=== PATIENT | female | born 1980 | race Caucasian/White ===

== ENCOUNTER 2016-06-07 08:24 | Emergency (ER) | payer OTHER ==
[~2016-06-07] VITALS: Ht 162.6 cm; Wt 69.3 kg
[2016-06-07] MEDS ORDERED: ZOLOFT100 MG PO (09:07)
[2016-06-07 09:10] LABS: HEMATOCRIT 42.5 % (36.0-46.0); MCHC 34.1 G/DL (30.0-36.0); MCV 87.8 FL (83-99); MEAN PLAT.VOLUME 9.2 uM^3 (9.5-12.4); PLATELET COUNT 270 K/uL (156-360); RBC DIS.WIDTH-CV 12.2 % (11.8-14.6); RED BLOOD COUNT 4.84 M/uL (3.80-5.20); WHITE BLOOD COUNT 4.8 K/uL (4.1-10.2)
[2016-06-07 09:16] LABS: CHLORIDE 106 mEq/L (99-109); POTASSIUM 3.8 mEq/L (3.7-5.4); SODIUM 139 mEq/L (136-147)
[2016-06-07 09:18] LABS: GLUCOSE 81 mg/dL (70-99)
[2016-06-07 09:20] LABS: ANION GAP 11 MEQ/L (2-14)
[2016-06-07 09:23] LABS: GFR ESTIMATE (CALCULATED) > 59 mL/min/; UREA NITROGEN (BUN) 15 mg/dL (9-23)
[2016-06-07 09:30] LABS: QUANTITATIVE HCG < 4.0 MIU/ML
[2016-06-07 10:25] LABS: ADD MIUA? YES; BILIRUBIN NEGATIVE; BLOOD NEGATIVE; COLOR YELLOW ((YELLOW)); GLUCOSE (STRIP) NEGATIVE; KETONES NEGATIVE; LEUKOCYTES SMALL; NITRITE NEGATIVE; PROTEIN (STRIP) NEGATIVE; SPECIFIC GRAVITY 1.013 (1.000-1.030); UROBILINOGEN 0.2 MG/DL (0.2-1.0)
[2016-06-07] MEDS ORDERED: KEPPRA500 MG PO (10:25)
[2016-06-07 10:28] LABS: BACTERIA RARE /HPF; EPITHELIAL CELLS 1+ /HPF; HYALINE CASTS 0-5 /LPF; MUCUS 1+ /LPF; WHITE BLOOD CELLS 0-5 /HPF (0-5)
[2016-06-07 10:53] VITALS: BP 102/67
== END 2016-06-07 10:55 | disposition home or self-care (01) ==
LOC: EME 08:24
PROVIDERS: Physician Assistant
DX: G40.909 Epilepsy, unspecified, not intractable, without status epilepticus (principal); M25.512 Pain in left shoulder
CPT/HCPCS: 80048; 81003; 84702; 85027; 93005; 99281; 99285; J7030